=== PATIENT | male | born 2000 | race African-American/Black ===

== ENCOUNTER 2020-06-04 22:28 | Emergency (ER) | payer OTHER ==
[2020-06-05 00:19] VITALS: BP 114/86
== END 2020-06-05 00:20 | disposition home or self-care (01) ==
LOC: ED 22:28
DX: T65.91XA Toxic effect of unspecified substance, accidental (unintentional), initial encounter (principal); T26.91XA Corrosion of right eye and adnexa, part unspecified, initial encounter; Z23 Encounter for immunization; X58.XXXA Exposure to other specified factors, initial encounter; Y99.0 Civilian activity done for income or pay
CPT/HCPCS: 90714